=== PATIENT | male | born 1955 | race Caucasian/White ===

== ENCOUNTER 2018-04-05 16:32 | Outpatient (REF) | payer MEDICARE, BC, SELFPAY ==
[2018-04-08 11:44] LABS: HIV-1/2 Ag & Ab Screen Negative (NEGAT)
[2018-04-08 12:39] LABS: Hepatitis A Antibody IgM Negative (NEGAT); Hepatitis B Core Antibody Negative (NEGAT); Hepatitis B surface Ag Negative (NEGAT); Hepatitis C Ab w Rflx HCV PCR Negative (NEGAT)
[2018-04-08 14:39] LABS: Chlamydia Result Negative; GC Result Negative; Specimen Description URINE
[2018-04-09 23:16] LABS: C.trach, Misc, Amplified RNA Negative (Negative); N.gonorr, Misc, Amplified RNA Negative (Negative); SOURCE: THROAT
== END 2018-04-05 16:33 ==
LOC: NCHCN 16:32
PROVIDERS: PCP Family Medicine; Visit Provider Family Medicine
DX: Z11.59 Encounter for screening for other viral diseases (principal); Z11.4 Encounter for screening for human immunodeficiency virus [HIV]; Z11.3 Encounter for screening for infections with a predominantly sexual mode of transmission; Z72.51 High risk heterosexual behavior
CPT/HCPCS: 86704; 86709; 86803; 87340; 87389; 87491; 87591

== ENCOUNTER 2018-05-31 09:40 | Outpatient (REF) | payer MEDICARE, BC, SELFPAY ==
[2018-05-31 20:27] LABS: Hemoglobin A1C 5.4 % (4.5-6.2)
[2018-05-31 20:30] LABS: Alkaline Phosphatase 77 U/L (46-116); Anion Gap 8.4 mmol/L (3-11); BUN 19 mg/dL (7-18); Bilirubin, Total 0.5 mg/dL (0.2-1.0); CO2 27.6 mmol/L (21.0-32.0); CREATININE 0.92 mg/dL (0.70-1.30); Calcium 8.5 mg/dL (8.5-10.1); Chloride 101 mmol/L (98-107); Cholesterol 192 mg/dL (50-200); Glucose 107 mg/dL (70-100); HDL Cholesterol 22 mg/dL (40-60); LDL CHOLESTEROL 44 mg/dL (<100); Potassium 4.1 mmol/L (3.5-5.1); Sodium 137 mmol/L (136-145)
[2018-05-31 20:48] LABS: AST 28 U/L (15-37); Total Protein 8.5 g/dL (6.4-8.2)
[2018-05-31 20:52] LABS: ALT < 6 U/L (12-78); Triglyceride 1609 mg/dL (30-150)
== END 2018-05-31 10:00 ==
LOC: NCHCN 09:40
PROVIDERS: PCP Family Medicine; Visit Provider Family Medicine
DX: E11.9 Type 2 diabetes mellitus without complications (principal); E78.2 Mixed hyperlipidemia; E78.1 Pure hyperglyceridemia; E66.9 Obesity, unspecified
CPT/HCPCS: 80053; 80061; 83721; 83036

== ENCOUNTER 2018-06-20 13:21 | Outpatient (REF) | payer MEDICARE, BC, SELFPAY ==
[2018-06-20 21:35] LABS: COMMENT (LAB VIEW ONLY) 102.48 mg/dL
== END 2018-06-20 13:41 ==
LOC: NCHCN 13:21
PROVIDERS: PCP Family Medicine; Visit Provider Family Medicine
DX: E11.9 Type 2 diabetes mellitus without complications (principal)
CPT/HCPCS: 82043; 82570

== ENCOUNTER 2018-09-11 09:22 | Outpatient (REF) | payer MEDICARE, BC, SELFPAY ==
[2018-09-11 22:15] LABS: Cholesterol 155 mg/dL (50-200); HDL Cholesterol 23 mg/dL (40-60); LDL CHOLESTEROL 46 mg/dL (<100); Triglyceride 560 mg/dL (30-150)
[2018-09-11 23:02] LABS: Hemoglobin A1C 6.1 % (4.5-6.2)
== END 2018-09-11 09:42 ==
LOC: NCHCN 09:22
PROVIDERS: PCP Family Medicine; Visit Provider Family Medicine
DX: E78.2 Mixed hyperlipidemia (principal); E11.9 Type 2 diabetes mellitus without complications
CPT/HCPCS: 80061; 83721; 83036

== ENCOUNTER 2019-01-10 09:42 | Outpatient (REF) | payer MEDICARE, BC, SELFPAY ==
[2019-01-10 21:41] LABS: Albumin 4.2 g/dL (3.4-5.0); Alkaline Phosphatase 69 U/L (46-116); BUN 21 mg/dL (7-18); Bilirubin, Total 0.4 mg/dL (0.2-1.0); CREATININE 0.99 mg/dL (0.70-1.30); Calcium 9.3 mg/dL (8.5-10.1); Chloride 98 mmol/L (98-107); Glucose 119 mg/dL (70-100); Potassium 4.6 mmol/L (3.5-5.1); Sodium 137 mmol/L (136-145); Total Protein 7.8 g/dL (6.4-8.2)
[2019-01-10 21:49] LABS: Cholesterol 174 mg/dL (50-200); HDL Cholesterol 18 mg/dL (40-60); LDL CHOLESTEROL 44 mg/dL (<100)
[2019-01-10 21:55] LABS: AST 33 U/L (15-37)
[2019-01-10 22:11] LABS: Triglyceride 2185 mg/dL (30-150)
[2019-01-10 22:12] LABS: ALT 58 U/L (12-78)
== END 2019-01-10 10:02 ==
LOC: NCHCN 09:42
PROVIDERS: PCP Family Medicine; Visit Provider Family Medicine
DX: E11.9 Type 2 diabetes mellitus without complications (principal); E78.2 Mixed hyperlipidemia; E78.1 Pure hyperglyceridemia; K76.0 Fatty (change of) liver, not elsewhere classified
CPT/HCPCS: 80053; 80061; 83721; 83036

== ENCOUNTER 2019-05-09 08:29 | Outpatient (REF) | payer MEDICARE, BC, SELFPAY ==
[2019-05-09 21:42] LABS: HCT 44.9 % (40.0-50.0); HGB 15.1 g/dL (13.5-17.5); Mean Corp. HGB Concentration 33.6 g/dL (32.0-36.0); Mean Corpuscular Hemoglobin 30.8 pg (27.0-33.0); Mean Corpuscular Volume 91.4 fL (80-95); Mean Platelet Volume 10.9 fL (8.0-11.0); Platelet Count 262 x1000/uL (130-400); RBC 4.91 m/cumm (4.50-6.00); RBC Distribution Width 13.9 % (11.8-14.1); White Blood Cell Count 11.34 k/cumm (4.4-10.8)
[2019-05-09 21:50] LABS: Hemoglobin A1C 6.1 % (4.5-6.2)
[2019-05-09 22:20] LABS: ALT 67 U/L (16-63); AST 30 U/L (15-37); Albumin 4.1 g/dL (3.4-5.0); Alkaline Phosphatase 64 U/L (46-116); Anion Gap 11.7 mmol/L (3-11); BUN 19 mg/dL (7-18); Bilirubin, Total 0.4 mg/dL (0.2-1.0); CO2 28.3 mmol/L (21.0-32.0); CREATININE 1.08 mg/dL (0.70-1.30); Calcium 9.5 mg/dL (8.5-10.1); Chloride 100 mmol/L (98-107); Cholesterol 175 mg/dL (50-200); Glucose 92 mg/dL (70-100); HDL Cholesterol 23 mg/dL (40-60); Potassium 4.3 mmol/L (3.5-5.1); Sodium 140 mmol/L (136-145); TSH (W/Ref FT4) 2.82 uIU/mL (0.36-3.74); Total Protein 8.1 g/dL (6.4-8.2); Triglyceride 640 mg/dL (30-150)
[2019-05-09 22:35] LABS: LDL CHOLESTEROL 54 mg/dL (<100)
[2019-05-12 07:50] LABS: Vitamin D 25 Total 36.5 ng/ml (30-100)
[2019-05-12 11:16] LABS: HIV-1/2 Ag & Ab Screen Negative (NEGAT)
[2019-05-12 11:56] LABS: Syphilis Serology (RPR) Negative (Negative)
== END 2019-05-09 08:49 ==
LOC: NCHCN 08:29
PROVIDERS: PCP Family Medicine; Visit Provider Family Medicine
DX: E78.2 Mixed hyperlipidemia (principal); E11.9 Type 2 diabetes mellitus without complications; F33.9 Major depressive disorder, recurrent, unspecified; I73.9 Peripheral vascular disease, unspecified; R53.83 Other fatigue; E66.09 Other obesity due to excess calories; Z11.59 Encounter for screening for other viral diseases; Z11.4 Encounter for screening for human immunodeficiency virus [HIV]; Z72.51 High risk heterosexual behavior
CPT/HCPCS: 80053; 80061; 82306; 83721; 85027; 87389; 83036; 84443; 86592

== ENCOUNTER 2019-11-05 08:00 | Outpatient (REF) | payer MEDICARE, BC, SELFPAY ==
[2019-11-05 23:21] LABS: Hemoglobin A1C 5.9 % (3.8-5.6)
[2019-11-05 23:32] LABS: ALT 84 U/L (16-63); AST 45 U/L (15-37); Albumin 4.4 g/dL (3.4-5.0); Alkaline Phosphatase 64 U/L (46-116); Anion Gap 11.8 mmol/L (3-11); BUN 13 mg/dL (7-18); Bilirubin, Total 0.4 mg/dL (0.2-1.0); CO2 28.2 mmol/L (21.0-32.0); Calcium 9.4 mg/dL (8.5-10.1); Chloride 100 mmol/L (98-107); Cholesterol 227 mg/dL (<200); Glucose 107 mg/dL (74-106); HDL Cholesterol 23 mg/dL (40-60); Potassium 4.5 mmol/L (3.5-5.1); Sodium 140 mmol/L (136-145); Total Protein 8.2 g/dL (6.4-8.2)
[2019-11-05 23:33] LABS: Triglyceride 1060 mg/dL (<150)
[2019-11-05 23:44] LABS: LDL CHOLESTEROL 50 mg/dL (<100)
== END 2019-11-05 08:20 ==
LOC: NCHCN 08:00
PROVIDERS: PCP Family Medicine; Visit Provider Family Medicine
DX: E11.9 Type 2 diabetes mellitus without complications (principal); E78.2 Mixed hyperlipidemia; K76.0 Fatty (change of) liver, not elsewhere classified
CPT/HCPCS: 80053; 80061; 83721; 83036

== ENCOUNTER 2020-02-13 16:11 | Outpatient (REF) | payer MEDICARE, BC, SELFPAY ==
[2020-02-13 21:02] LABS: Abs Immature Grans 0.12 k/cumm (0.0-0.09); Absolute Basophil Count 0.02 k/cumm (0.0-0.2); Absolute Eosinophil Count 0.02 k/cumm (0.0-0.7); Absolute Lymphocyte Count 2.98 k/cumm (1.2-3.4); Absolute Monocyte Count 1.01 k/cumm (0.11-0.7); Absolute Neutrophil Count 11.12 k/cumm (1.2-6.7); Basophils % 0.1; Eosinophils % 0.1; HCT 45.9 % (40.0-50.0); HGB 15.4 g/dL (13.5-17.5); Immature Grans % 0.8 %; Lymphocytes % 19.5; Mean Corp. HGB Concentration 33.6 g/dL (32.0-36.0); Mean Corpuscular Hemoglobin 30.3 pg (27.0-33.0); Mean Corpuscular Volume 90.4 fL (80-95); Mean Platelet Volume 10.3 fL (8.0-11.0); Monocytes % 6.6; Neutrophils % 72.9; Platelet Count 262 x1000/uL (130-400); RBC 5.08 m/cumm (4.50-6.00); RBC Distribution Width 14.1 % (11.8-14.1); White Blood Cell Count 15.26 k/cumm (4.4-10.8)
[2020-02-13 21:27] LABS: ALT 54 U/L (16-63); AST 34 U/L (15-37); Albumin 4.5 g/dL (3.4-5.0); Alkaline Phosphatase 68 U/L (46-116); Anion Gap 15.3 mmol/L (3-11); BUN 18 mg/dL (7-18); Bilirubin, Total 0.4 mg/dL (0.2-1.0); CO2 23.7 mmol/L (21.0-32.0); CREATININE 1.33 mg/dL (0.70-1.30); Calcium 9.9 mg/dL (8.5-10.1); Chloride 101 mmol/L (98-107); Glucose 135 mg/dL (74-106); Lipase 125 U/L (73-393); Potassium 4.7 mmol/L (3.5-5.1); Sodium 140 mmol/L (136-145); Total Protein 8.8 g/dL (6.4-8.2)
== END 2020-02-13 16:31 ==
LOC: NCHCN 16:11
PROVIDERS: PCP Family Medicine; Visit Provider Nurse Practitioner Family
DX: R53.83 Other fatigue (principal); R11.0 Nausea
CPT/HCPCS: 80053; 83690; 85025

== ENCOUNTER 2020-02-16 21:30 | Outpatient (REF) | payer MEDICARE, BC, SELFPAY ==
[2020-02-16 22:26] LABS: Abs Immature Grans 0.07 k/cumm (0.0-0.09); Absolute Eosinophil Count 0.07 k/cumm (0.0-0.7); Absolute Lymphocyte Count 2.93 k/cumm (1.2-3.4); Absolute Monocyte Count 0.84 k/cumm (0.11-0.7); Absolute Neutrophil Count 5.31 k/cumm (1.2-6.7); Eosinophils % 0.8; HCT 42.2 % (40.0-50.0); HGB 13.9 g/dL (13.5-17.5); Immature Grans % 0.8 %; Lymphocytes % 31.8; Mean Corp. HGB Concentration 32.9 g/dL (32.0-36.0); Mean Corpuscular Hemoglobin 30.3 pg (27.0-33.0); Mean Corpuscular Volume 92.1 fL (80-95); Mean Platelet Volume 10.1 fL (8.0-11.0); Monocytes % 9.1; Neutrophils % 57.5; Platelet Count 266 x1000/uL (130-400); RBC 4.58 m/cumm (4.50-6.00); RBC Distribution Width 13.5 % (11.8-14.1); White Blood Cell Count 9.22 k/cumm (4.4-10.8)
[2020-02-16 23:11] LABS: ALT 68 U/L (16-63); AST 50 U/L (15-37); Albumin 4.2 g/dL (3.4-5.0); Alkaline Phosphatase 67 U/L (46-116); BUN 15 mg/dL (7-18); Bilirubin, Total 0.3 mg/dL (0.2-1.0); CREATININE 1.09 mg/dL (0.70-1.30); Calcium 9.5 mg/dL (8.5-10.1); Chloride 102 mmol/L (98-107); Glucose 114 mg/dL (74-106); Potassium 4.9 mmol/L (3.5-5.1); Sodium 140 mmol/L (136-145); Total Protein 8.1 g/dL (6.4-8.2)
== END 2020-02-16 21:50 ==
LOC: NCHCN 21:30
PROVIDERS: PCP Family Medicine; Visit Provider Nurse Practitioner Family
DX: R11.0 Nausea (principal); R10.31 Right lower quadrant pain
CPT/HCPCS: 80053; 85025

== ENCOUNTER 2020-02-24 21:56 | Outpatient (REF) | payer MEDICARE, BC, SELFPAY ==
[2020-02-24 20:42] LABS: Hemoglobin A1C 6.7 % (3.8-5.6)
[2020-02-24 20:51] LABS: ALT 75 U/L (16-63); AST 47 U/L (15-37); Alkaline Phosphatase 67 U/L (46-116); Anion Gap 13.5 mmol/L (3-11); BUN 13 mg/dL (7-18); Bilirubin, Total 0.6 mg/dL (0.2-1.0); CO2 25.5 mmol/L (21.0-32.0); CREATININE 1.07 mg/dL (0.70-1.30); Calcium 9.8 mg/dL (8.5-10.1); Calculated LDL 20 mg/dL (<100); Chloride 100 mmol/L (98-107); Cholesterol 121 mg/dL (<200); Glucose 139 mg/dL (74-106); HDL Cholesterol 22 mg/dL (40-60); Potassium 4.2 mmol/L (3.5-5.1); Sodium 139 mmol/L (136-145); Total Protein 7.9 g/dL (6.4-8.2); Triglyceride 396 mg/dL (<150)
[2020-02-26 09:43] LABS: Syphilis Serology (RPR) Negative (Negative)
[2020-02-26 10:12] LABS: HIV-1/2 Ag & Ab Screen Negative (Negative); Hepatitis C Ab w Rflx HCV PCR Negative (Negative)
== END 2020-02-24 22:16 ==
LOC: NCHCN 21:56
PROVIDERS: PCP Family Medicine; Visit Provider Family Medicine
DX: E11.9 Type 2 diabetes mellitus without complications (principal); E78.2 Mixed hyperlipidemia; E78.1 Pure hyperglyceridemia; K76.0 Fatty (change of) liver, not elsewhere classified; R74.0 Nonspecific elevation of levels of transaminase and lactic acid dehydrogenase [LDH]; Z11.3 Encounter for screening for infections with a predominantly sexual mode of transmission; Z11.4 Encounter for screening for human immunodeficiency virus [HIV]; Z11.59 Encounter for screening for other viral diseases
CPT/HCPCS: 80053; 80061; 86803; 87389; 83036; 86592

== ENCOUNTER 2020-03-02 11:44 | Outpatient (REF) | payer MEDICARE, BC, SELFPAY ==
[2020-03-02 21:57] LABS: Abs Immature Grans 0.19 k/cumm (0.0-0.09); Absolute Basophil Count 0.01 k/cumm (0.0-0.2); Absolute Eosinophil Count 0.06 k/cumm (0.0-0.7); Absolute Lymphocyte Count 3.64 k/cumm (1.2-3.4); Absolute Monocyte Count 1.39 k/cumm (0.11-0.7); Absolute Neutrophil Count 7.31 k/cumm (1.2-6.7); Basophils % 0.1; Eosinophils % 0.5; HGB 13.7 g/dL (13.5-17.5); Immature Grans % 1.5 %; Lymphocytes % 28.9; Mean Corp. HGB Concentration 33.4 g/dL (32.0-36.0); Mean Corpuscular Volume 89.9 fL (80-95); Mean Platelet Volume 9.9 fL (8.0-11.0); Platelet Count 362 x1000/uL (130-400); RBC 4.56 m/cumm (4.50-6.00); RBC Distribution Width 13.1 % (11.8-14.1); White Blood Cell Count 12.61 k/cumm (4.4-10.8)
[2020-03-02 22:14] LABS: Anion Gap 13.5 mmol/L (3-11); BUN 11 mg/dL (7-18); CO2 24.5 mmol/L (21.0-32.0); Calcium 9.3 mg/dL (8.5-10.1); Chloride 99 mmol/L (98-107); Glucose 111 mg/dL (74-106); Magnesium 1.8 mg/dL (1.8-2.4); Potassium 4.2 mmol/L (3.5-5.1); Sodium 137 mmol/L (136-145)
== END 2020-03-02 12:04 ==
LOC: NCHCN 11:44
PROVIDERS: PCP Family Medicine; Visit Provider Family Medicine
DX: E83.42 Hypomagnesemia (principal); E87.5 Hyperkalemia; J98.4 Other disorders of lung
CPT/HCPCS: 80048; 83735; 85025

== ENCOUNTER 2020-04-27 08:10 | Outpatient (REF) | payer MEDICARE, BC, SELFPAY ==
[2020-04-27 21:20] LABS: ALT 88 U/L (16-63); AST 50 U/L (15-37); Alkaline Phosphatase 78 U/L (46-116); Anion Gap 6.5 mmol/L (3-11); BUN 14 mg/dL (7-18); Bilirubin, Total 0.3 mg/dL (0.2-1.0); CO2 27.5 mmol/L (21.0-32.0); CREATININE 1.06 mg/dL (0.70-1.30); Chloride 103 mmol/L (98-107); Cholesterol 147 mg/dL (<200); Glucose 147 mg/dL (74-106); HDL Cholesterol 22 mg/dL (40-60); Magnesium 1.5 mg/dL (1.8-2.4); Potassium 4.2 mmol/L (3.5-5.1); Sodium 137 mmol/L (136-145); Total Protein 7.8 g/dL (6.4-8.2); Triglyceride 632 mg/dL (<150)
[2020-04-27 22:01] LABS: LDL CHOLESTEROL 39 mg/dL (<100)
== END 2020-04-27 08:30 ==
LOC: NCHCN 08:10
PROVIDERS: PCP Family Medicine; Visit Provider Family Medicine
DX: E11.9 Type 2 diabetes mellitus without complications (principal); E78.2 Mixed hyperlipidemia; E78.1 Pure hyperglyceridemia; I10 Essential (primary) hypertension; R74.0 Nonspecific elevation of levels of transaminase and lactic acid dehydrogenase [LDH]
CPT/HCPCS: 80053; 80061; 83721; 83036; 83735

== ENCOUNTER 2020-05-04 13:32 | Outpatient (REF) | payer MEDICARE, BC, SELFPAY ==
[2020-05-04 22:16] LABS: COMMENT (LAB VIEW ONLY) 145.21 mg/dL
[2020-05-04 22:24] LABS: Microalb ug/mg Crea 131.2 ug/mg Cr
== END 2020-05-04 13:52 ==
LOC: NCHCN 13:32
PROVIDERS: PCP Family Medicine; Visit Provider Family Medicine
DX: E11.9 Type 2 diabetes mellitus without complications (principal)
CPT/HCPCS: 82043; 82570

== ENCOUNTER 2020-07-27 10:25 | Outpatient (REF) | payer MEDICARE, BC, SELFPAY ==
[2020-07-27 22:45] LABS: ALT 67 U/L (16-63); AST 41 U/L (15-37); Albumin 4.3 g/dL (3.4-5.0); Alkaline Phosphatase 58 U/L (46-116); Anion Gap 7.3 mmol/L (3-11); BUN 16 mg/dL (7-18); Bilirubin, Total 0.4 mg/dL (0.2-1.0); CO2 29.7 mmol/L (21.0-32.0); CREATININE 0.99 mg/dL (0.70-1.30); Calcium 9.3 mg/dL (8.5-10.1); Chloride 102 mmol/L (98-107); Cholesterol 207 mg/dL (<200); Glucose 99 mg/dL (74-106); HDL Cholesterol 24 mg/dL (40-60); Magnesium 1.5 mg/dL (1.8-2.4); Potassium 4.2 mmol/L (3.5-5.1); Sodium 139 mmol/L (136-145); Total Protein 8.1 g/dL (6.4-8.2); Triglyceride 808 mg/dL (<150)
[2020-07-27 22:52] LABS: Hemoglobin A1C 6.5 % (<5.7)
[2020-07-27 23:07] LABS: LDL CHOLESTEROL 55 mg/dL (<100)
== END 2020-07-27 10:45 ==
LOC: NCHCN 10:25
PROVIDERS: PCP Family Medicine; Visit Provider Family Medicine
DX: E11.9 Type 2 diabetes mellitus without complications (principal); E83.42 Hypomagnesemia; E87.6 Hypokalemia
CPT/HCPCS: 80053; 80061; 83721; 83036; 83735

== ENCOUNTER 2020-11-01 14:51 | Outpatient (REF) | payer MEDICARE, BC, SELFPAY ==
[2020-11-01 13:48] LABS: Hemoglobin A1C 6.2 % (<5.7)
[2020-11-01 13:52] LABS: ALT 72 U/L (16-63); AST 36 U/L (15-37); Albumin 4.4 g/dL (3.4-5.0); Alkaline Phosphatase 63 U/L (46-116); Anion Gap 7.5 mmol/L (3-11); BUN 19 mg/dL (7-18); Bilirubin, Total 0.4 mg/dL (0.2-1.0); CO2 28.5 mmol/L (21.0-32.0); CREATININE 1.1 mg/dL (0.70-1.30); Calcium 9.6 mg/dL (8.5-10.1); Chloride 102 mmol/L (98-107); Cholesterol 206 mg/dL (<200); Glucose 115 mg/dL (74-106); HDL Cholesterol 23 mg/dL (40-60); Potassium 4.9 mmol/L (3.5-5.1); Sodium 138 mmol/L (136-145); Total Protein 8.4 g/dL (6.4-8.2); Triglyceride 875 mg/dL (<150)
[2020-11-01 14:03] LABS: LDL CHOLESTEROL 47 mg/dL (<100)
== END 2020-11-01 14:52 | disposition home or self-care (01) ==
LOC: NCHCN 14:51
PROVIDERS: PCP Family Medicine; Visit Provider Family Medicine
DX: E11.9 Type 2 diabetes mellitus without complications (principal); E78.1 Pure hyperglyceridemia; E78.6 Lipoprotein deficiency
CPT/HCPCS: 80053; 80061; 83721; 83036

== ENCOUNTER 2021-02-07 14:13 | Outpatient (REF) | payer MEDICARE, BC, SELFPAY ==
[2021-02-07 13:18] LABS: Abs Immature Grans 0.02 10^3/uL (0.0-0.06); Absolute Basophil Count 0.03 10^3/uL (0.0-0.2); Absolute Eosinophil Count 0.07 10^3/uL (0.0-0.7); Absolute Lymphocyte Count 4.29 10^3/uL (1.2-3.4); Absolute Monocyte Count 0.92 10^3/uL (0.1-0.8); Absolute Neutrophil Count 4.52 10^3/uL (1.2-6.7); Basophils % 0.3; Eosinophils % 0.7; HCT 45.4 % (40.0-50.0); Immature Grans % 0.2; Lymphocytes % 43.6; MCH 31.7 pg (27.0-33.0); MCHC 35.2 % (32.0-36.0); MCV 90.1 fL (80-95); MPV 10.8 fL (8.0-11.0); Monocytes % 9.3; Neutrophils % 45.9; Nucleated RBC 0 %; Platelet Count 204 10^3/uL (130-400); RBC 5.04 10^6/uL (4.36-5.78); RDW 12.7 % (11.8-14.1); RDW-SD 41.7 fL; WBC 9.85 10^3/uL (4.4-10.8)
[2021-02-07 13:40] LABS: Hemoglobin A1C 6.2 % (<5.7)
[2021-02-07 14:25] LABS: Cholesterol 219 mg/dL (<200); HDL Cholesterol 18 mg/dL (40-60)
[2021-02-07 14:26] LABS: Triglyceride 1799 mg/dL (<150)
[2021-02-07 14:37] LABS: LDL CHOLESTEROL 40 mg/dL (<100)
[2021-02-07 15:00] LABS: ALT 83 U/L (16-63); AST 46 U/L (15-37); Albumin 4.4 g/dL (3.4-5.0); Alkaline Phosphatase 72 U/L (46-116); Anion Gap 15.1 mmol/L (3-11); BUN 24 mg/dL (7-18); Bilirubin, Total 0.3 mg/dL (0.2-1.0); CO2 22.9 mmol/L (21.0-32.0); Calcium 10.2 mg/dL (8.5-10.1); Chloride 102 mmol/L (98-107); Glucose 107 mg/dL (74-106); Potassium 4.4 mmol/L (3.5-5.1); Sodium 140 mmol/L (136-145); Total Protein 8.2 g/dL (6.4-8.2)
[2021-02-08 10:14] LABS: HIV-1/2 Ag & Ab Screen Negative (Negative)
== END 2021-02-07 14:14 | disposition home or self-care (01) ==
LOC: NCHCN 14:13
PROVIDERS: PCP Family Medicine; Visit Provider Family Medicine
DX: E11.9 Type 2 diabetes mellitus without complications (principal); E78.2 Mixed hyperlipidemia; K76.0 Fatty (change of) liver, not elsewhere classified; Z11.4 Encounter for screening for human immunodeficiency virus [HIV]; Z11.59 Encounter for screening for other viral diseases
CPT/HCPCS: 80053; 80061; 83721; 87389; 83036; 85025

== ENCOUNTER 2021-05-16 10:11 | Outpatient (REF) | payer MEDICARE, BC, SELFPAY ==
[2021-05-16 14:18] LABS: Magnesium 1.4 mg/dL (1.8-2.4)
[2021-05-16 14:23] LABS: ALT 81 U/L (16-63); AST 39 U/L (15-37); Albumin 4.2 g/dL (3.4-5.0); Alkaline Phosphatase 67 U/L (46-116); Anion Gap 8.9 mmol/L (3-11); BUN 14 mg/dL (7-18); Bilirubin, Total 0.3 mg/dL (0.2-1.0); CO2 29.1 mmol/L (21.0-32.0); CREATININE 1.1 mg/dL (0.70-1.30); Calcium 8.8 mg/dL (8.5-10.1); Chloride 106 mmol/L (98-107); Cholesterol 208 mg/dL (<200); Glucose 125 mg/dL (74-106); HDL Cholesterol 23 mg/dL (40-60); Potassium 4.5 mmol/L (3.5-5.1); Sodium 144 mmol/L (136-145); Total Protein 7.7 g/dL (6.4-8.2); Triglyceride 822 mg/dL (<150)
[2021-05-16 14:27] LABS: Hemoglobin A1C 6.2 % (<5.7)
[2021-05-16 14:36] LABS: LDL CHOLESTEROL 42 mg/dL (<100)
== END 2021-05-16 10:12 | disposition home or self-care (01) ==
LOC: NCHCN 10:11
PROVIDERS: PCP Family Medicine; Referring Provider Family Medicine; Visit Provider Family Medicine
DX: I10 Essential (primary) hypertension (principal); E78.2 Mixed hyperlipidemia; E11.9 Type 2 diabetes mellitus without complications; E83.42 Hypomagnesemia; Z00.00 Encounter for general adult medical examination without abnormal findings
CPT/HCPCS: 80053; 80061; 83721; 83036; 83735

== ENCOUNTER 2021-08-22 09:02 | Outpatient (REF) | payer MEDICARE, BC, SELFPAY ==
[2021-08-22 15:18] LABS: Abs Immature Grans 0.05 10^3/uL (0.0-0.06); Absolute Basophil Count 0.04 10^3/uL (0.0-0.2); Absolute Eosinophil Count 0.04 10^3/uL (0.0-0.7); Absolute Lymphocyte Count 4.27 10^3/uL (1.2-3.4); Absolute Neutrophil Count 4.72 10^3/uL (1.2-6.7); Basophils % 0.4; Eosinophils % 0.4; HCT 44.7 % (40.0-50.0); HGB 14.9 g/dL (13.5-17.5); Immature Grans % 0.5; MCH 29.7 pg (27.0-33.0); MCHC 33.3 % (32.0-36.0); MCV 89.2 fL (80-95); MPV 11.1 fL (8.0-11.0); Monocytes % 8.1; Neutrophils % 47.6; Nucleated RBC 0 %; Platelet Count 187 10^3/uL (130-400); RBC 5.01 10^6/uL (4.36-5.78); RDW 12.9 % (11.8-14.1); RDW-SD 42.2 fL; WBC 9.92 10^3/uL (4.4-10.8)
[2021-08-22 16:21] LABS: ALT 72 U/L (16-63); AST 30 U/L (15-37); Albumin 4.1 g/dL (3.4-5.0); Alkaline Phosphatase 54 U/L (46-116); Anion Gap 10.1 mmol/L (3-11); BUN 19 mg/dL (7-18); Bilirubin, Total 0.3 mg/dL (0.2-1.0); CO2 27.9 mmol/L (21.0-32.0); Calcium 8.9 mg/dL (8.5-10.1); Chloride 102 mmol/L (98-107); Cholesterol 230 mg/dL (<200); Glucose 104 mg/dL (74-106); HDL Cholesterol 26 mg/dL (40-60); Potassium 4.3 mmol/L (3.5-5.1); Sodium 140 mmol/L (136-145); TSH (W/Ref FT4) 2.83 uIU/mL (0.36-3.74); Total Protein 7.3 g/dL (6.4-8.2); Triglyceride 891 mg/dL (<150)
[2021-08-22 16:30] LABS: Hemoglobin A1C 6.1 % (<5.7)
[2021-08-22 16:43] LABS: LDL CHOLESTEROL 50 mg/dL (<100)
[2021-08-22 22:29] LABS: PSA, Screening 1.7 ng/mL (0.0-4.5)
== END 2021-08-22 09:03 | disposition home or self-care (01) ==
LOC: NCHCN 09:02
PROVIDERS: PCP Family Medicine; Visit Provider Nurse Practitioner Family
DX: I10 Essential (primary) hypertension (principal); E11.9 Type 2 diabetes mellitus without complications; E78.2 Mixed hyperlipidemia; R61 Generalized hyperhidrosis; R74.01 Elevation of levels of liver transaminase levels; E66.9 Obesity, unspecified; Z12.5 Encounter for screening for malignant neoplasm of prostate
CPT/HCPCS: 80053; 80061; 83721; 84153; 83036; 84443; 85025

== ENCOUNTER 2021-11-15 18:42 | Outpatient (REF) | payer MEDICARE, BC, SELFPAY ==
[2021-11-15 15:03] LABS: CO2 27.4 mmol/L (21.0-32.0); Cholesterol 211 mg/dL (<200); HDL Cholesterol 25 mg/dL (40-60); Triglyceride 989 mg/dL (<150)
[2021-11-15 15:31] LABS: LDL CHOLESTEROL 38 mg/dL (<100)
[2021-11-15 16:34] LABS: ALT 52 U/L (16-63); AST 33 U/L (15-37); Albumin 4.2 g/dL (3.4-5.0); Alkaline Phosphatase 49 U/L (46-116); Anion Gap 10.6 mmol/L (3-11); BUN 16 mg/dL (7-18); Bilirubin, Total 0.3 mg/dL (0.2-1.0); Chloride 107 mmol/L (98-107); Glucose 90 mg/dL (74-106); Potassium 4.2 mmol/L (3.5-5.1); Sodium 145 mmol/L (136-145); Total Protein 7.7 g/dL (6.4-8.2)
[2021-11-15 16:51] LABS: Calcium 9.7 mg/dL (8.5-10.1)
== END 2021-11-15 18:43 | disposition home or self-care (01) ==
LOC: NCHCN 18:42
PROVIDERS: PCP Family Medicine; Visit Provider Family Medicine
DX: E11.9 Type 2 diabetes mellitus without complications (principal); I10 Essential (primary) hypertension; E78.5 Hyperlipidemia, unspecified; K76.0 Fatty (change of) liver, not elsewhere classified
CPT/HCPCS: 80053; 80061; 83721; 83036

== ENCOUNTER 2021-11-22 13:04 | Outpatient (REF) | payer MEDICARE, BC, SELFPAY ==
[2021-11-22 22:22] LABS: COMMENT (LAB VIEW ONLY) 76.59 mg/dL
[2021-11-22 22:24] LABS: Microalb ug/mg Crea 100.7 ug/mg Cr
== END 2021-11-22 13:05 | disposition home or self-care (01) ==
LOC: NCHCN 13:04
PROVIDERS: PCP Family Medicine; Visit Provider Family Medicine
DX: E11.9 Type 2 diabetes mellitus without complications (principal)
CPT/HCPCS: 82043; 82570

== ENCOUNTER 2022-05-15 16:03 | Outpatient (REF) | payer MEDICARE, BC, SELFPAY ==
[2022-05-15 15:34] LABS: HCT 42.2 % (40.0-50.0); HGB 15.3 g/dL (13.5-17.5); MCH 32.3 pg (27.0-33.0); MCHC 36.3 % (32.0-36.0); MCV 89 fL (80-95); MPV 10.9 fL (8.0-11.0); Platelet Count 199 10^3/uL (130-400); RBC 4.74 10^6/uL (4.36-5.78); RDW 13.1 % (11.8-14.1); RDW-SD 42.7 fL; WBC 9.85 10^3/uL (4.4-10.8)
[2022-05-15 15:49] LABS: Albumin 3.8 g/dL (3.4-5.0); Alkaline Phosphatase 52 U/L (46-116); Anion Gap 9.1 mmol/L (3-11); BUN 14 mg/dL (7-18); Bilirubin, Total 0.4 mg/dL (0.2-1.0); CO2 27.9 mmol/L (21.0-32.0); Calcium 8.6 mg/dL (8.5-10.1); Chloride 104 mmol/L (98-107); Cholesterol 202 mg/dL (<200); Estimated GFR 81.47 (mL/min/1.73m2); Glucose 113 mg/dL (74-106); HDL Cholesterol 26 mg/dL (40-60); Potassium 4.1 mmol/L (3.5-5.1); Sodium 141 mmol/L (136-145); Total Protein 7.4 g/dL (6.4-8.2)
[2022-05-15 16:24] LABS: Hemoglobin A1C 5.9 % (<5.7)
[2022-05-15 17:39] LABS: Triglyceride 1277 mg/dL (<150)
[2022-05-15 18:24] LABS: LDL CHOLESTEROL 40 mg/dL (<100)
[2022-05-15 18:56] LABS: ALT 46 U/L (16-63); AST 23 U/L (15-37)
[2022-05-17 09:55] LABS: HIV-1/2 Ag & Ab Screen Negative (Negative)
== END 2022-05-15 16:04 | disposition home or self-care (01) ==
LOC: NCHCN 16:03
PROVIDERS: PCP Family Medicine; Visit Provider Family Medicine
DX: E11.9 Type 2 diabetes mellitus without complications (principal); Z11.4 Encounter for screening for human immunodeficiency virus [HIV]; K76.0 Fatty (change of) liver, not elsewhere classified; I10 Essential (primary) hypertension; E78.2 Mixed hyperlipidemia
CPT/HCPCS: 80053; 80061; 83721; 85027; 87389; 83036

== ENCOUNTER 2022-12-12 12:38 | Outpatient (REF) | payer MEDICARE, BC, SELFPAY ==
[2022-12-12 15:17] LABS: Alkaline Phosphatase 56 U/L (46-116); Anion Gap 11.1 mmol/L (3-11); BUN 26 mg/dL (7-18); Bilirubin, Total 0.4 mg/dL (0.2-1.0); CO2 24.9 mmol/L (21.0-32.0); CREATININE 1.2 mg/dL (0.70-1.30); Calcium 9.1 mg/dL (8.5-10.1); Chloride 99 mmol/L (98-107); Cholesterol 247 mg/dL (<200); Estimated GFR 65.46 (mL/min/1.73m2); Glucose 123 mg/dL (74-106); HDL Cholesterol 27 mg/dL (40-60); Potassium 4.2 mmol/L (3.5-5.1); Sodium 135 mmol/L (136-145)
[2022-12-12 16:17] LABS: Hemoglobin A1C 6.3 % (<5.7)
[2022-12-12 16:46] LABS: ALT 62 U/L (16-63); AST 36 U/L (15-37); Total Protein 8.3 g/dL (6.4-8.2)
[2022-12-12 17:45] LABS: Triglyceride 1540 mg/dL (<150)
[2022-12-12 17:48] LABS: LDL CHOLESTEROL QNS mg/dL (<100)
== END 2022-12-12 12:39 | disposition home or self-care (01) ==
LOC: NCHCN 12:38
PROVIDERS: PCP Family Medicine; Visit Provider Family Medicine
DX: E78.2 Mixed hyperlipidemia (principal); E11.9 Type 2 diabetes mellitus without complications; I10 Essential (primary) hypertension
CPT/HCPCS: 80053; 80061; 83721; 83036

== ENCOUNTER 2022-12-19 17:04 | Outpatient (REF) | payer MEDICARE, BC, SELFPAY ==
[2022-12-19 21:55] LABS: COMMENT (LAB VIEW ONLY) 77.38 mg/dL; Microalb ug/mg Crea 16.5 ug/mg Cr
== END 2022-12-19 17:05 | disposition home or self-care (01) ==
LOC: NCHCN 17:04
PROVIDERS: PCP Family Medicine; Visit Provider Family Medicine
DX: E11.9 Type 2 diabetes mellitus without complications (principal)
CPT/HCPCS: 82043; 82570

== ENCOUNTER 2023-06-22 19:05 | Outpatient (REF) | payer MEDICARE, BC, SELFPAY | END 2023-06-22 19:06 | disposition home or self-care (01) | LOC: NCHCN 19:05 | PROVIDERS: PCP Family Medicine; Visit Provider Family Medicine | DX: K52.9 Noninfective gastroenteritis and colitis, unspecified (principal) | CPT/HCPCS: 82272; 83630; 87177 ==

== ENCOUNTER 2023-08-15 09:17 | Outpatient (REF) | payer MEDICARE, BC, SELFPAY ==
[2023-06-19 21:47] LABS: HCT 43.5 % (40.0-50.0); HGB 14.8 g/dL (13.5-17.5); MCH 30.8 pg (27.0-33.0); MCV 91 fL (80-95); MPV 10.7 fL (8.0-11.0); Platelet Count 202 10^3/uL (130-400); RDW 13.2 % (11.8-14.1); WBC 10.63 10^3/uL (4.4-10.8)
[2023-06-19 22:03] LABS: TSH 4.54 uIU/mL (0.36-3.74)
[2023-06-21 10:28] LABS: Syphilis Serology (RPR) Negative (Negative)
[2023-06-21 11:35] LABS: HIV-1/2 Ag & Ab Screen Negative (Negative)
[2023-06-21 11:46] LABS: Hep B Core Antibody Negative (Negative)
[2023-06-21 12:13] LABS: Hepatitis C Ab w Rflx HCV PCR Negative (Negative)
[2023-06-21 12:41] LABS: FREE T4 0.75 ng/dL (0.76-1.46)
[2023-06-21 14:37] LABS: Chlamydia Result Negative (Negative); GC Result Negative (Negative)
[2023-06-22 13:50] LABS: Hemoglobin A1C 6.3 % (<5.7)
--- OUTSIDE RECORDS SUMMARY | 2023-08-15 09:24 | XMS_ITS | CCD ---
Author Name Unknown Address [address] [place] [address] [phone] Organization Unknown Address [address] [place] [address] [phone] Care Team Providers Care Executive Director Sheltered Workshop Name Role Phone SOLA ROWLAND Attending Physician [phone] SOLA ROWLAND Rounding (Secondary) Physician [phone] Vital Signs Unknown or Not Available. Allergies Allergy Code Allergy Type Reaction Status NIACIN PREPARATIONS {Clinica l monitoring unavailable} 0 Drug allergy FLUSHING Active ADHESIVE 0 Allergy to substance RASH Acti ve LATEX 0 Allergy to substance itching, hives Active Procedures Unknown or Not Available. History of Immunizations Unknown or Not Available. Problems Unknown or Not Available. Results Unknown or Not Available. Active Medications Unknown or Not Available. Medications Administered During Visit Unknown or Not Available. Encounters Encounter Diagnosis Diagnosis Code Start Date Peripheral vascular disease 987241321 12/02 Social History Smoking Status Code Start Date End Date Former smoker [id number] Patient Decision Aids Unknown or Not Available. Discharge Instructions You were admitted to [facility] on 12/20/2022 00:00 with a principal diagnosis of Other specified peripheral vascular diseases You were discharged from [facility] on 12/20/2022 00:00 Should you have any questions prior to discharge, please contact a member of your healthcare team. If you have left the hospital and have any questions, please contact your primary care physician. Chief Complaint and Reason For Visit Unknown or Not Available. Function Status Unknown or Not Available. Plan of Care Unknown or Not Available. Referral/Transition of Care Unknown or Not Available.
--- OUTSIDE RECORDS SUMMARY | 2023-08-15 09:25 | XMS_ITS | CCD ---
Author Name Unknown Address [address] [place] [address] [phone] Organization Unknown Address [address] [place] [address] [phone] Care Team Providers Care Security Installer Name Role Phone NENA FENG Attending Physician 3 Vital Signs Unknown or Not Available. Allergies Allergy Code Allergy Type Reaction Status NIACIN PREPARATIONS {Clinica l monitoring unavailable} 0 Drug allergy FLUSHING Active ADHESIVE 0 Allergy to substance RASH Acti ve LATEX 0 Allergy to substance itching, hives Active Procedures Unknown or Not Available. History of Immunizations Unknown or Not Available. Problems Unknown or Not Available. Results [facility] - [facility] ct Date/Time: 02/25/2021 10:30 Test Name Code Test Result Test Units Test Ref Rang e SOURCE= Anterior nasal N/A Tier- PRE-OP N/A SARS COV2 RNA: 29909-6 NEGATIVE N/A REFERENCE RANGE: NEGAT Active Medications Unknown or Not Available. Medications Administered During Visit Unknown or Not Available. Encounters Encounter Diagnosis Diagnosis Code Start Date Pre-surgery testing [id number] 02/25/2021 Social History Smoking Status Code Start Date End Date Former smoker [id number] Patient Decision Aids Unknown or Not Available. Discharge Instructions You were admitted to [facility] on 02/25/2021 16:50 with a principal diagnosis of Encounter for preprocedural laboratory examination You had the following tests done:ANNIE PAULINOX You were discharged from [place] [address] on 02/25/2021 16:50 Should you have any questions prior to [...]
--- OUTSIDE RECORDS SUMMARY | 2023-08-15 09:25 | XMS_ITS | CCD ---
Author Name Unknown Address [address] [place] [address] [phone] Organization Unknown Address [address] [place] [address] [phone] Care Team Providers Care Department Supervisor Name Role Phone SOLA ROWLAND Attending Physician [phone] SOLA ROWLAND Rounding (Secondary) Physician [phone] Vital Signs Unknown or Not Available. Allergies [...] Diagnosis Code Start Date Peripheral vascular disease [id number] 12/02 Social History Smoking Status Code Start Date End Date Former smoker [id number] Patient Decision Aids Unknown or Not Available. Discharge Instructions You were admitted to [facility] on 12/14/2021 09:21 with a principal diagnosis of Other specified peripheral vascular diseases You were discharged from [facility] on 12/14/2021 00:00 Should you have any questions prior [...]
== END 2023-08-15 09:18 | disposition home or self-care (01) ==
LOC: NCHCN 09:17
PROVIDERS: PCP Family Medicine; Visit Provider Family Medicine
DX: Z00.00 Encounter for general adult medical examination without abnormal findings (principal); R94.6 Abnormal results of thyroid function studies; E11.9 Type 2 diabetes mellitus without complications; E66.9 Obesity, unspecified
CPT/HCPCS: 85027; 86704; 86803; 87389; 87491; 87591; 83036; 84439; 84443; 86592

== ENCOUNTER 2023-08-28 08:29 | Outpatient (REF) | payer MEDICARE, BC, SELFPAY ==
--- OUTSIDE RECORDS SUMMARY | 2023-08-28 08:32 | XMS_ITS | CCD ---
Author Name Unknown Address [address] [place] [address] [phone] Organization Unknown Address [address] [place] [address] [phone] Care Team Providers Care Retail Salesworker Name Role Phone SOLA ROWLAND Attending Physician [phone] SOLA ROWLAND Rounding (Secondary) Physician [phone] Vital Signs Unknown or Not Available. Allergies [...] Diagnosis Code Start Date Peripheral vascular disease 313881125 12/02 Social History Smoking Status Code Start Date End Date Former smoker 2749531 Patient Decision Aids Unknown or Not Available. [...]
--- OUTSIDE RECORDS SUMMARY | 2023-08-28 08:32 | XMS_ITS | CCD ---
Author Name Unknown Address [address] [place] [address] [phone] Organization Unknown Address [address] [place] [address] [phone] Care Team Providers Care Warble Saw Operator Name Role Phone SOLA ROWLAND Attending Physician [phone] SOLA ROWLAND Rounding (Secondary) Physician [phone] Vital Signs Unknown or Not Available. Allergies [...] Diagnosis Code Start Date Peripheral vascular disease [id number] 06/03 Social History Smoking Status Code Start Date End Date Former smoker [id number] Patient Decision Aids Unknown or Not Available. Discharge Instructions You were admitted to [facility] on 06/14/2022 12:53 with a principal diagnosis of Other specified peripheral vascular diseases You were discharged from [facility] on 06/14/2022 00:00 Should you have any questions prior [...]
--- OUTSIDE RECORDS SUMMARY | 2023-08-28 08:32 | XMS_ITS | CCD ---
Author Name Unknown Address [address] [place] [address] [phone] Organization Unknown Address [address] [place] [address] [phone] Care Team Providers Care Electrician Marine Name Role Phone SOLA ROWLAND Attending Physician [phone] SOLA ROWLAND Rounding (Secondary) Physician [phone] Vital Signs Unknown or Not Available. Allergies [...] Diagnosis Code Start Date Peripheral vascular disease 325934142 06/03 Social History Smoking Status Code Start Date End Date Former smoker 4427138 Patient Decision Aids Unknown or Not Available. Discharge Instructions You were admitted to [facility] on 06/21/2023 00:00 with a principal diagnosis of Other specified peripheral vascular diseases You were discharged from [facility] on 06/21/2023 10:34 Should you have any questions prior to [...]
--- OUTSIDE RECORDS SUMMARY | 2023-08-28 08:33 | XMS_ITS | CCD ---
Author Name Unknown Address [address] [place] [address] [phone] Organization Unknown Address [address] [place] [address] [phone] Care Team Providers Care Microbiology Lab Manager Name Role Phone NENA FENG Attending Physician [...] Results [facility] - [facility] ct Date/Time: 02/25/2021 10:30 Test Name Code Test Result Test Units Test Ref Rang e SOURCE= Anterior nasal N/A Tier- PRE-OP N/A SARS COV2 RNA: 21851-7 NEGATIVE N/A REFERENCE RANGE: NEGAT Active Medications Unknown or Not Available. Medications Administered During Visit Unknown or Not Available. Encounters Encounter Diagnosis Diagnosis Code Start Date Pre-surgery testing [id number] 02/25/2021 Social History Smoking Status Code Start Date End Date Former smoker [id number] Patient Decision Aids Unknown or Not Available. Discharge Instructions You were admitted to [facility] on 02/25/2021 16:50 with a principal diagnosis of Encounter for preprocedural laboratory examination You had the following tests done:ANNIE PAULINOX You were discharged from [place] [address] on 02/25/2021 16:50 Should you have any [...]
[2023-08-28 15:27] LABS: Anion Gap 8.7 mmol/L (3-11); BUN 18 mg/dL (7-18); CO2 26.3 mmol/L (21.0-32.0); CREATININE 1.1 mg/dL (0.70-1.30); Calcium 8.9 mg/dL (8.5-10.1); Chloride 103 mmol/L (98-107); Cholesterol 166 mg/dL (<200); Estimated GFR 72.22 (mL/min/1.73m2); Glucose 127 mg/dL (74-106); HDL Cholesterol 28 mg/dL (40-60); Potassium 4.2 mmol/L (3.5-5.1); Sodium 138 mmol/L (136-145); TSH 0.12 uIU/mL (0.36-3.74); Triglyceride 783 mg/dL (<150)
[2023-08-28 15:42] LABS: LDL CHOLESTEROL 36 mg/dL (<100)
[2023-08-28 22:57] LABS: HIV-1/2 Ag & Ab Screen Negative (Negative)
== END 2023-08-28 08:30 | disposition home or self-care (01) ==
LOC: NCHCN 08:29
PROVIDERS: PCP Family Medicine; Visit Provider Family Medicine
DX: E78.5 Hyperlipidemia, unspecified (principal); E03.9 Hypothyroidism, unspecified; Z11.4 Encounter for screening for human immunodeficiency virus [HIV]; Z51.81 Encounter for therapeutic drug level monitoring; Z79.899 Other long term (current) drug therapy
CPT/HCPCS: 80048; 80061; 83721; 87389; 84443

== ENCOUNTER 2023-11-14 15:39 | Outpatient (REF) | payer MEDICARE, BC, SELFPAY ==
[2023-11-15 11:18] LABS: Campylobacter PCR Negative (Negative); Salmonella PCR Negative (Negative); Shiga Toxin PCR Negative (Negative); Shigella/Enteroinvasive Ecoli Negative (Negative)
== END 2023-11-14 15:40 | disposition home or self-care (01) ==
LOC: NCHCN 15:39
PROVIDERS: PCP Family Medicine; Referring Provider Family Medicine; Visit Provider Family Medicine
DX: K52.9 Noninfective gastroenteritis and colitis, unspecified (principal)
CPT/HCPCS: 87505

== ENCOUNTER 2023-12-26 08:17 | Outpatient (REF) | payer MEDICARE, BC, SELFPAY ==
[2023-12-26 14:51] LABS: Anion Gap 9.6 mmol/L (3-11); BUN 15 mg/dL (7-18); CO2 27.4 mmol/L (21.0-32.0); CREATININE 1.1 mg/dL (0.70-1.30); Calcium 9.1 mg/dL (8.5-10.1); Chloride 102 mmol/L (98-107); Estimated GFR 72.22 (mL/min/1.73m2); Glucose 123 mg/dL (74-106); Potassium 4.4 mmol/L (3.5-5.1); Sodium 139 mmol/L (136-145); TSH 1.08 uIU/Ml (0.36-3.74)
[2023-12-26 15:02] LABS: Hemoglobin A1C 6.4 % (<5.7)
[2023-12-27 09:23] LABS: HIV-1/2 Ag & Ab Screen Negative (Negative)
[2023-12-27 19:41] LABS: Cholesterol 180 mg/dL (<200); HDL Cholesterol 28 mg/dL (40-60); Triglyceride 841 mg/dL (<150)
[2023-12-27 20:28] LABS: LDL CHOLESTEROL 32 mg/dL (<100)
== END 2023-12-26 08:18 | disposition home or self-care (01) ==
LOC: NCHCN 08:17
PROVIDERS: PCP Family Medicine; Visit Provider Family Medicine
DX: E03.9 Hypothyroidism, unspecified (principal); E11.9 Type 2 diabetes mellitus without complications; E78.2 Mixed hyperlipidemia; I73.9 Peripheral vascular disease, unspecified
CPT/HCPCS: 80048; 80061; 83721; 87389; 83036; 84443

== ENCOUNTER 2024-02-26 15:03 | Outpatient (REF) | payer MEDICARE, BC, SELFPAY ==
[2024-02-26 15:26] LABS: HCT 42.8 % (40.0-50.0); MCH 30.6 pg (27.0-33.0); MCHC 32.7 % (32.0-36.0); MCV 94 fL (80-95); MPV 10.2 fL (8.0-11.0); Platelet Count 288 10^3/uL (130-400); RBC 4.57 10^6/uL (4.36-5.78); RDW 13.6 % (11.8-14.1); RDW-SD 46.4 fL; WBC 9.85 10^3/uL (4.4-10.8)
[2024-02-26 15:33] LABS: BUN 14 mg/dL (7-18); Estimated GFR 80.97 (mL/min/1.73m2)
[2024-02-26 15:36] LABS: Prothrombin Time 9.7 sec (9.1-11.1)
== END 2024-02-26 15:04 | disposition home or self-care (01) ==
LOC: LBN 15:03
PROVIDERS: PCP Family Medicine; Visit Provider Student in an Organized Health Care Education/Training Program
DX: I73.9 Peripheral vascular disease, unspecified (principal); I10 Essential (primary) hypertension; E11.9 Type 2 diabetes mellitus without complications; Z51.81 Encounter for therapeutic drug level monitoring
CPT/HCPCS: 84520; 85027; 82565; 85610

== ENCOUNTER 2024-04-22 15:07 | Outpatient (REF) | payer MEDICARE, BC, SELFPAY ==
[2024-04-22 16:52] LABS: HGB 12.6 g/dL (13.5-17.5); MCHC 31.5 % (32.0-36.0); MCV 89 fL (80-95); MPV 10.5 fL (8.0-11.0); Platelet Count 303 10^3/uL (130-400); RDW 13.3 % (11.8-14.1); RDW-SD 43.3 fL; WBC 9.88 10^3/uL (4.4-10.8)
[2024-04-22 18:15] LABS: ALT 65 U/L (16-63); AST 49 U/L (15-37); Albumin 4.2 g/dL (3.4-5.0); Alkaline Phosphatase 83 U/L (46-116); Anion Gap 12.1 mmol/L (3-11); BUN 13 mg/dL (7-18); Bilirubin, Total 0.39 mg/dL (0.2-1.0); CO2 26.9 mmol/L (21.0-32.0); CREATININE 1.1 mg/dL (0.70-1.30); Calcium 9.7 mg/dL (8.5-10.1); Chloride 100 mmol/L (98-107); Cholesterol 169 mg/dL (<200); Estimated GFR 71.77 (mL/min/1.73m2); Ferritin 24 ng/mL (26-388); Glucose 107 mg/dL (74-106); HDL Cholesterol 30 mg/dL (40-60); Potassium 4.2 mmol/L (3.5-5.1); Sodium 139 mmol/L (136-145); Total Protein 8.9 g/dL (6.4-8.2); Triglyceride 767 mg/dL (<150)
[2024-04-22 18:38] LABS: LDL CHOLESTEROL 39 mg/dL (<100)
[2024-04-22 23:20] LABS: HIV-1/2 Ag & Ab Screen Negative (Negative)
[2024-04-22 23:22] LABS: Hepatitis C Ab w Rflx HCV PCR Negative (Negative)
[2024-04-23 08:41] LABS: Syphilis Serology (RPR) Negative (Negative)
[2024-04-23 13:06] LABS: Chlamydia Result Negative (Negative); GC Result Negative (Negative)
[2024-04-23 14:22] LABS: Chlamydia Result Negative (Negative); GC Result Negative (Negative)
== END 2024-04-22 15:08 | disposition home or self-care (01) ==
LOC: NCHCN 15:07
PROVIDERS: PCP Family Medicine; Visit Provider Family Medicine
DX: G25.81 Restless legs syndrome (principal)
CPT/HCPCS: 80053; 80061; 83721; 85027; 86631; 86632; 86803; 87389; 87491; 87591; 82728; 86592; 86702

== ENCOUNTER 2024-07-15 09:24 | Outpatient (REF) | payer MEDICARE, BC, SELFPAY ==
[2024-07-15 16:58] LABS: Anion Gap 10.6 mmol/L (3-11); BUN 14 mg/dL (7-18); CO2 26.4 mmol/L (21.0-32.0); CREATININE 1.2 mg/dL (0.70-1.30); Calcium 9.5 mg/dL (8.5-10.1); Chloride 103 mmol/L (98-107); Estimated GFR 64.65 (mL/min/1.73m2); Glucose 122 mg/dL (74-106); Potassium 4.7 mmol/L (3.5-5.1); Sodium 140 mmol/L (136-145)
[2024-07-15 17:54] LABS: Hemoglobin A1C 6.3 % (<5.7)
== END 2024-07-15 09:25 | disposition home or self-care (01) ==
LOC: NCHCN 09:24
PROVIDERS: PCP Family Medicine; Visit Provider Family Medicine
DX: E11.9 Type 2 diabetes mellitus without complications (principal); I10 Essential (primary) hypertension
CPT/HCPCS: 80048; 83036

== ENCOUNTER 2024-07-22 11:54 | Outpatient (REF) | payer MEDICARE, BC, SELFPAY ==
[2024-07-22 15:41] LABS: COMMENT (LAB VIEW ONLY) 163.44 mg/dL
[2024-07-22 15:43] LABS: Microalb ug/mg Crea 170.8 ug/mg Cr
== END 2024-07-22 11:55 | disposition home or self-care (01) ==
LOC: NCHCN 11:54
PROVIDERS: PCP Family Medicine; Visit Provider Family Medicine
DX: E11.9 Type 2 diabetes mellitus without complications (principal)
CPT/HCPCS: 82043; 82570

== ENCOUNTER 2024-12-02 13:57 | Outpatient (REF) | payer MEDICARE, BC, SELFPAY ==
[2024-12-02 15:26] LABS: HGB 8.9 g/dL (13.5-17.5); MCH 22.3 pg (27.0-33.0); MCHC 27.8 % (32.0-36.0); MCV 80 fL (80-95); MPV 10.6 fL (8.0-11.0); Platelet Count 361 10^3/uL (130-400); RDW-SD 55.2 fL; WBC 7.41 10^3/uL (4.4-10.8)
[2024-12-02 15:46] LABS: Hemoglobin A1C 5.4 % (<5.7)
[2024-12-02 15:47] LABS: ALT 29 U/L (16-63); AST 38 U/L (15-37); Albumin 3.9 g/dL (3.4-5.0); Alkaline Phosphatase 73 U/L (46-116); Anion Gap 6.6 mmol/L (3-11); BUN 16 mg/dL (7-18); Bilirubin, Total 0.3 mg/dL (0.2-1.0); CO2 27.4 mmol/L (21.0-32.0); CREATININE 1.3 mg/dL (0.70-1.30); Calcium 9.6 mg/dL (8.5-10.1); Calculated LDL 16 mg/dL (<100); Chloride 104 mmol/L (98-107); Cholesterol 121 mg/dL (<200); Estimated GFR 58.73 (mL/min/1.73m2); Glucose 94 mg/dL (74-106); HDL Cholesterol 34 mg/dL (>or=40); Potassium 5.2 mmol/L (3.5-5.1); Sodium 138 mmol/L (136-145); Total Protein 8.4 g/dL (6.4-8.2); Triglyceride 358 mg/dL (<150)
[2024-12-03 13:31] LABS: HIV-1/2 Ag & Ab Screen Negative (Negative)
== END 2024-12-02 13:58 | disposition home or self-care (01) ==
LOC: NCHCN 13:57
PROVIDERS: PCP Family Medicine; Visit Provider Family Medicine
DX: E78.2 Mixed hyperlipidemia (principal); E11.9 Type 2 diabetes mellitus without complications; D64.9 Anemia, unspecified; Z29.81 Encounter for HIV pre-exposure prophylaxis; Z11.3 Encounter for screening for infections with a predominantly sexual mode of transmission
CPT/HCPCS: 80053; 80061; 85027; 87389; 83036

== ENCOUNTER 2024-12-30 12:24 | Outpatient (REF) | payer MEDICARE, BC, SELFPAY ==
[2024-12-30 14:23] LABS: HCT 34.5 % (40.0-50.0); HGB 9.8 g/dL (13.5-17.5); MCH 23.1 pg (27.0-33.0); MCHC 28.4 % (32.0-36.0); MCV 81 fL (80-95); MPV 10.6 fL (8.0-11.0); Platelet Count 344 10^3/uL (130-400); RBC 4.25 10^6/uL (4.36-5.78); RDW 19.9 % (11.8-14.1); RDW-SD 58.3 fL; WBC 8.58 10^3/uL (4.4-10.8)
[2024-12-30 14:36] LABS: ALT 38 U/L (16-63); AST 34 U/L (15-37); Albumin 4.1 g/dL (3.4-5.0); Alkaline Phosphatase 79 U/L (46-116); BUN 17 mg/dL (7-18); Bilirubin, Total 0.3 mg/dL (0.2-1.0); CREATININE 1.3 mg/dL (0.70-1.30); Calcium 9.1 mg/dL (8.5-10.1); Chloride 103 mmol/L (98-107); Estimated GFR 58.73 (mL/min/1.73m2); Glucose 99 mg/dL (74-106); Potassium 5.2 mmol/L (3.5-5.1); Sodium 139 mmol/L (136-145); Total Protein 8.4 g/dL (6.4-8.2)
== END 2024-12-30 12:25 | disposition home or self-care (01) ==
LOC: NCHCN 12:24
PROVIDERS: PCP Family Medicine; Visit Provider Family Medicine
DX: D50.0 Iron deficiency anemia secondary to blood loss (chronic) (principal)
CPT/HCPCS: 80053; 85027

== ENCOUNTER 2025-01-30 14:24 | Outpatient (REF) | payer MEDICARE, BC, SELFPAY ==
[2025-01-30 14:17] LABS: HCT 37.6 % (40.0-50.0); HGB 10.7 g/dL (13.5-17.5); MCH 23.5 pg (27.0-33.0); MCHC 28.5 % (32.0-36.0); MCV 83 fL (80-95); MPV 10.1 fL (8.0-11.0); Platelet Count 316 10^3/uL (130-400); RBC 4.56 10^6/uL (4.36-5.78); RDW 18.1 % (11.8-14.1); RDW-SD 53.9 fL; WBC 10.58 10^3/uL (4.4-10.8)
[2025-01-30 14:41] LABS: ALT 29 U/L (16-63); AST 33 U/L (15-37); Albumin 4.1 g/dL (3.4-5.0); Alkaline Phosphatase 79 U/L (46-116); Anion Gap 9.4 mmol/L (3-11); BUN 27 mg/dL (7-18); Bilirubin, Total 0.2 mg/dL (0.2-1.0); CO2 26.6 mmol/L (21.0-32.0); CREATININE 1.3 mg/dL (0.70-1.30); Calcium 9.3 mg/dL (8.5-10.1); Chloride 101 mmol/L (98-107); Estimated GFR 58.73 (mL/min/1.73m2); Glucose 112 mg/dL (74-106); Potassium 4.7 mmol/L (3.5-5.1); Sodium 137 mmol/L (136-145); Total Protein 9.2 g/dL (6.4-8.2)
== END 2025-01-30 14:25 | disposition home or self-care (01) ==
LOC: NCHCN 14:24
PROVIDERS: PCP Family Medicine; Visit Provider Family Medicine
DX: K92.2 Gastrointestinal hemorrhage, unspecified (principal); D50.0 Iron deficiency anemia secondary to blood loss (chronic)
CPT/HCPCS: 80053; 85027

== ENCOUNTER 2025-03-13 12:22 | Outpatient (REF) | payer MEDICARE, BC, SELFPAY ==
[2025-03-13 15:29] LABS: ALT 44 U/L (16-63); AST 30 U/L (15-37); Albumin 4.2 g/dL (3.4-5.0); Alkaline Phosphatase 85 U/L (46-116); Anion Gap 11.7 mmol/L (3-11); BUN 16 mg/dL (7-18); Bilirubin, Total 0.2 mg/dL (0.2-1.0); CO2 26.3 mmol/L (21.0-32.0); Calcium 9.6 mg/dL (8.5-10.1); Chloride 100 mmol/L (98-107); Estimated GFR 80.47 (mL/min/1.73m2); Glucose 97 mg/dL (74-106); Potassium 4.8 mmol/L (3.5-5.1); Sodium 138 mmol/L (136-145); Total Protein 8.5 g/dL (6.4-8.2)
[2025-03-13 15:53] LABS: Hemoglobin A1C 6.0 % (<5.7)
[2025-03-13 16:01] LABS: HCT 38.4 % (40.0-50.0); HGB 12.0 g/dL (13.5-17.5); MCH 25.2 pg (27.0-33.0); MCHC 31.3 % (32.0-36.0); MCV 81 fL (80-95); MPV 10.8 fL (8.0-11.0); Platelet Count 293 10^3/uL (130-400); RBC 4.77 10^6/uL (4.36-5.78); RDW 17.1 % (11.8-14.1); RDW-SD 49.4 fL; WBC 10.07 10^3/uL (4.4-10.8)
[2025-03-13 23:12] LABS: HBs Antibody, Quant 33.2 mIU/mL (See Note); Hepatitis B Surface Ab Positive (See Note)
[2025-03-13 23:52] LABS: Hep B Core Antibody Negative (Negative)
== END 2025-03-13 12:23 | disposition home or self-care (01) ==
LOC: NCHCN 12:22
PROVIDERS: PCP Family Medicine; Visit Provider Family Medicine
DX: E11.29 Type 2 diabetes mellitus with other diabetic kidney complication (principal); K76.0 Fatty (change of) liver, not elsewhere classified
CPT/HCPCS: 80053; 85027; 86704; 86706; 83036

== ENCOUNTER 2025-04-24 18:42 | Outpatient (REF) | payer MEDICARE, BC, SELFPAY ==
[2025-04-24 15:42] LABS: HCT 40.4 % (40.0-50.0); HGB 12.7 g/dL (13.5-17.5); MCH 25.9 pg (27.0-33.0); MCHC 31.4 % (32.0-36.0); MCV 82 fL (80-95); MPV 11.0 fL (8.0-11.0); Platelet Count 265 10^3/uL (130-400); RBC 4.90 10^6/uL (4.36-5.78); RDW 16.0 % (11.8-14.1); RDW-SD 48.4 fL; WBC 7.85 10^3/uL (4.4-10.8)
== END 2025-04-24 18:43 | disposition home or self-care (01) ==
LOC: NCHCN 18:42
PROVIDERS: PCP Family Medicine; Visit Provider Family Medicine
DX: D50.0 Iron deficiency anemia secondary to blood loss (chronic) (principal)
CPT/HCPCS: 85027

== ENCOUNTER 2025-06-09 10:02 | Outpatient (CLI) | payer MEDICARE, BC, SELFPAY ==
[2025-06-09 10:35] LABS: HCT 37.7 % (40.0-50.0); HGB 12.3 g/dL (13.5-17.5); MCH 27.3 pg (27.0-33.0); MCHC 32.6 % (32.0-36.0); MCV 84 fL (80-95); MPV 9.6 fL (8.0-11.0); Platelet Count 262 10^3/uL (130-400); RBC 4.51 10^6/uL (4.36-5.78); RDW 17.7 % (11.8-14.1); RDW-SD 53.5 fL; WBC 8.34 10^3/uL (4.4-10.8)
[2025-06-09 11:11] LABS: Hemoglobin A1C 5.9 % (<5.7)
[2025-06-09 11:56] LABS: Albumin 3.9 g/dL (3.4-5.0); Alkaline Phosphatase 86 U/L (46-116); Anion Gap 15.8 mmol/L (3-11); BUN 16 mg/dL (7-18); Bilirubin, Total 0.5 mg/dL (0.2-1.0); CO2 20.2 mmol/L (21.0-32.0); Calcium 8.6 mg/dL (8.5-10.1); Chloride 103 mmol/L (98-107); Cholesterol 104 mg/dL (<200); Estimated GFR 64.25 (mL/min/1.73m2); Glucose 103 mg/dL (74-106); HDL Cholesterol 22 mg/dL (>or=40); Potassium 4.1 mmol/L (3.5-5.1); Sodium 139 mmol/L (136-145); TSH 1.96 uIU/mL (0.36-3.74); Triglyceride 862 mg/dL (<150)
[2025-06-09 13:59] LABS: AST 33 U/L (15-37); Total Protein 7.5 g/dL (6.4-8.2)
[2025-06-09 14:00] LABS: ALT 40 U/L (16-63)
[2025-06-09 16:32] LABS: LDL CHOLESTEROL 22 mg/dL (<100)
[2025-06-10 10:40] LABS: HIV-1/2 Ag & Ab Screen Negative (Negative)
[2025-06-10 10:50] LABS: Hepatitis C Ab w Rflx HCV PCR Negative (Negative)
[2025-06-10 11:30] LABS: Syphilis Serology (RPR) Negative (Negative)
[2025-06-10 12:43] LABS: Chlamydia Result Negative (Negative); GC Result Negative (Negative)
== END 2025-06-09 10:03 | disposition home or self-care (01) ==
LOC: LBO 10:03
PROVIDERS: PCP Family Medicine; Visit Provider Family Medicine
DX: E03.9 Hypothyroidism, unspecified (principal); E11.29 Type 2 diabetes mellitus with other diabetic kidney complication; D50.0 Iron deficiency anemia secondary to blood loss (chronic)
CPT/HCPCS: 36415; 80053; 80061; 83721; 85027; 86803; 87389; 87491; 87591; 83036; 84443; 86592

== ENCOUNTER 2025-06-16 18:08 | Outpatient (REF) | payer MEDICARE, BC, SELFPAY ==
[2025-06-16 19:11] LABS: COMMENT (LAB VIEW ONLY) 196.78 mg/dL
[2025-06-16 19:12] LABS: Microalb ug/mg Crea 59.9 ug/mg Cr
== END 2025-06-16 18:09 | disposition home or self-care (01) ==
LOC: NCHCN 18:08
PROVIDERS: PCP Family Medicine; Visit Provider Family Medicine
DX: E11.29 Type 2 diabetes mellitus with other diabetic kidney complication (principal); R80.9 Proteinuria, unspecified
CPT/HCPCS: 82043; 82570